=== PATIENT | female | born 1960 | race Caucasian/White ===

== ENCOUNTER 2021-03-16 18:27 | Emergency (ER) | payer OTHER, SELFPAY ==
[2021-03-16 18:30] VITALS: BP 142/87; PULSE 107; RESP 17; TEMP 35.4; O2SAT 92; BMI 31.1
--- NOTE | 2021-03-16 19:25 | CT_ITS ---
STUDY: CT SOFT TISSUE NECK WITH CONTRAST REASON FOR EXAM: Female, 61 years old. Coughing up blood. Question mass. RADIATION DOSAGE (If Supplied By Facility): CTDIvol = ( 16.35 ) mGy, DLP = ( 408.38 ) mGycm TECHNIQUE: The patient was scanned in a multi-detector CT scanner. High resolution transaxial imaging was performed following intravenous administration of IV 100mL Isovue-370. Sagittal and coronal images were reconstructed. Individualized dose optimization techniques were used for this CT. COMPARISON: None. FINDINGS: Normal bilateral parotid glands. 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 Normal bilateral parapharyngeal spaces. Normal bilateral carotid spaces. Normal bilateral sublingual and submandibular glands and spaces. Normal visualized nasopharynx. Normal retropharyngeal space. Normal perivertebral space. Question mild enlargement of the visualized bilateral faucial tonsils. No abscess or abnormal enhancement. The visualized tongue, tongue base and oropharynx are normal. The visualized cervical lymph nodes (levels I-) are within normal size limits, and maintain normal morphology. There is no demonstrated solid or cystic mass lesion. There is no abnormal contrast enhancement. Normal epiglottis, bilateral vallecula and hypopharynx. The pre-epiglottic and paraglottic adipose spaces are normal. Normal visualized bilateral piriform sinuses, aryepiglottic folds, vocal cords, and arytenoid-cricoid articulations. Normal subglottic trachea. Normal bilateral lobes of the thyroid gland. Normal visualized pulmonary apices. There is evidence of an aberrant right subclavian artery which arises off the posterior arch and passes between the esophagus and thoracic spine. Normal visualized paranasal sinuses. Normal visualized cervical spine. CT/Soft Tissue Neck WITH Contrast IMPRESSION: 1. No evidence of mass within the soft tissues of the cervical spine. 2. Question mild prominence of the tonsils without abscess. 3. Aberrant right subclavian artery Electronically Signed: Leopoldo Lucia DO at 21:15 EDT Tel [phone], Service support ,
--- NOTE | 2021-03-16 19:25 | EKG12_ITS ---
Test Reason : DYSRHYTHMIA Blood Pressure : / mmHG Vent. Rate : 094 BPM Atrial Rate : 094 BPM P-R Int : 154 ms QRS Dur : 090 ms QT Int : 370 ms P-R-T Axes : 065 010 054 degrees QTc Int : 462 ms Normal sinus rhythm Normal ECG Confirmed by TABITHA FLORES, MELE ([id number]), legal editor KELECHI ZARAGOZA ([id number]) on 03/17/2021 12:59:24 PM Referred By: PL Confirmed By:SUSIE LU MD
[2021-03-16 19:37] VITALS: PULSE 97; RESP 18
[2021-03-16] MEDS: Ipratropium/Albuterol Sulfate 3 ML AMPUL.NEB INHALATION (19:37)
[2021-03-16 19:59] LABS: Absolute Lymphocyte Count 4.06 X10^3/uL (0.83-4.51); Absolute Neutrophil Count 6.4 X10^3/uL (2.0-7.7); Basophil# 0.14 X10^3/uL; Basophil% 1.2 % (0-1); Hematocrit 38.6 % (37-47); Hemoglobin 13.3 g/dL (12.0-15.0); Lymphocyte # 4.06 X10^3/ul (0.83-4.51); Lymphocyte % 33.7 % (19-41); Mean Corp Hgb Conc 34.5 g/dL (32-36); Mean Corpuscular Hgb 30.6 pg (27.0-32.0); Mean Corpuscular Volume 88.7 fL (81-99); Mean Platelet Vol. 8.6 fl (6.2-12.0); Monocyte# 0.82 X10^3/uL; Monocyte% 6.8 % (0-10); NRBC Flagged by Analyzer 0 % (0-5); Neutrophil # 6.41 X10^3/uL (2.7-7.7); Neutrophil % 53.1 % (47-70); Platelet Count 334 K/mm3 (150-450); RBC Distribution Width CV 12.9 % (11.6-14.6); RBC Distribution Width SD 41.9 fl (35.1-43.9); Red Blood Count 4.35 M/mm3 (4.2-5.4); White Blood Count 12.1 K/mm3 (4.4-11.0)
--- NOTE | 2021-03-16 20:06 | EDS_ITS ---
HPI History of Present Illness Chief Complaint: Cough Informant: patient Narrative Narrative: Patient presents with about a week of cough with intermittent mild hemoptysis. She states she had a large amount of hemoptysis last week and was seen at [facility]. They did blood work and a CAT scan of her abdomen. She states she is coughing the blood. She had swallowed some and then vomited but primarily she is coughing this. The symptoms have gotten better but she still brings up a small amount of blood when she coughs. She is not actually short of breath except during an episode of coughing. She has no chest pain. She has no weight loss. No fevers or chills. No sputum. No known Covid exposure and she does have immunizations. No recent travel, surgery, immobilization, personal or family history of DVT or PE. No leg swelling. She has no family history of heart disease. She was following up with the [place] who told her to come here for follow-up from her original visit a week ago. Past medical history positive for PTSD Medications reviewed Allergy to statin gabapentin and beta-blockers Surgeries include oophorectomy, appendectomy and cholecystectomy Non-smoker [facility] Medical History Kidney disease Thyroid nodule Home Medications amitriptyline 150 mg PO QHS 03/16/21 [History Last Taken Unknown] cholecalciferol (vitamin D3) 100 mcg PO DAILY 03/16/21 [History Last Taken Unknown] escitalopram oxalate 10 mg PO DAILY 03/16/21 [History Last Taken Unknown] levofloxacin 750 mg PO DAILY #6 tab 03/16/21 [Rx Last Taken Unknown] prazosin 1 mg PO TID 03/16/21 [History Last Taken Unknown] Allergy/AdvReac Type Severity Reaction Status Date / Time Uiwamkm-Mej-Mqo Reductase Allergy Rash Verified 03/16/21 18:28 Inhibitor gabapentin AdvReac MOOD Verified 03/16/21 18:28 CHANGES BETA BLOCKERS Allergy HEADACHES Uncoded 03/16/21 18:28 Social History Smoking Status: Current every day smoker tobacco type: pipe ROS ROS ED Constitutional Constitutional ED: Denies chills, fever(s), sweats or weight loss Eyes Eyes: Denies blurry vision ENT ENT ED: Reports other Details: She denies soreness of her throat. However, she feels as though sometimes the blood might come from her throat rather than from her lungs. She is not sure how she feels this is just feels that way to her. ; Denies rhinorrhea or sore throat Cardiovascular Cardiovascular: Denies chest pain or palpitations Respiratory/Chest Respiratory/Chest: Reports cough and other Details: See history of present illness ; Denies dyspnea Gastrointestinal Gastrointestinal: Denies abdominal pain, nausea or vomiting Genitourinary Genitourinary ED: Denies hematuria Musculoskeletal Musculoskeletal: Denies myalgias Integumentary Denies rash Neurologic Neurologic: Denies headache(s), paresthesias or weakness Endocrine Endocrinology: Denies polydipsia or polyuria Hematologic/Lymphatic Hematologic/Lymphatic: Denies easy bleeding or easy bruising Allergic/Immunologic Allergic/Immunologic ED: Denies urticaria EXAM Physical Exam Const Vital Signs: 03/16/21 18:30 03/16/21 19:37 Temperature 95.8 F L Temperature Source Temporal Pulse Rate 107 H 97 Respiratory Rate 17 18 Respiratory Pattern Normal Blood Pressure 142/87 H Blood Pressure Mean 105 Pulse Ox 92 Oxygen Delivery Method Room Air Positive well nourished and well developed General Appearance ED: well developed and NAD; Negative for pallor HEENT Reports moist mucous membranes HEENT Narrative: No intraoral lesions noted. atraumatic Eyes PERRL General Eye ED: Negative for pale conjunctiva or scleral icterus Neck no meningeal signs Neck Narrative: No JVD and no lymphadenopathy felt. No tenderness. No masses. Resp normal respiratory effort and clear to auscultation bilaterally Resp Narrative: She does have an occasional cough in the room although her lungs are clear. There is small pink spots on the tissue. Cardio regular rate and regular rhythm GI non-tender and non-distended Auscultation: normoactive bowel sounds Palpation: soft Back/Spine normal to inspection Extremity normal to inspection General Extremety ED: Negative for edema or tenderness General Extremity: Negative for edema Neuro oriented x3 Sensorium / Orientation: alert Psych mental status grossly normal Skin General Skin Exam: Negative for jaundice or pallor Lesions: no lesions Rashes: no rashes and No rashes noted MDM MDM MDM Narrative Medical decision making narrative: Patient's blood work shows some mild elevation of her white count. Creatinine is 1.2. Electrolytes are overall normal. CT showed no evidence of mass. There is mild prominence of tonsils but no abscess. There was a right upper lobe pneumonia. There are some mild emphys ematous changes. There was no pulmonary embolism or dissection. I talked with the patient. Her saturations are good. She is eating and drinking. We will get her home on antibiotics. She is comfortable with this plan. We discussed reasons to return including dyspnea, pain, worsening hemoptysis or other concerns. Lab Data Attestation: I reviewed the patient's lab results. Labs: Laboratory Results - last 24 hr 03/16/21 03/16/21 19:50 19:50 WBC 12.1 H RBC 4.35 Hgb 13.3 Hct 38.6 MCV 88.7 MCH 30.6 MCHC 34.5 RDW Std Deviation 41.9 RDW Coeff of Shelly 12.9 Plt Count 334 MPV 8.6 Immature Gran % (Auto) 0.200 Neut % (Auto) 53.1 Lymph % (Auto) 33.7 [place] % (Auto) 6.8 Eos % (Auto) 5.0 Baso % (Auto) 1.2 H Absolute Neuts (auto) 6.4 Absolute Lymphs (auto) 4.06 Nucleated RBC % 0 Sodium 137 Potassium 4.1 Chloride 107 Carbon Dioxide 24.0 Anion Gap 6 BUN 17 Creatinine 1.20 H Estim Creat Clear Calc 47.25 Est GFR (MDRD) Af Amer 59 L Est GFR (MDRD) Non-Af 49 L BUN/Creatinine Ratio 14.2 Glucose 99 Calcium 9.2 Radiography Diagnostic Testing: Radiology Impression Soft Tissue Neck CT 03/16/21 19:25 IMPRESSION: 1. No evidence of mass within the soft tissues of the cervical spine. 2. Question mild prominence of the tonsils without abscess. 3. Aberrant right subclavian artery Electronically Signed: Leopoldo Lucia DO at 21:15 EDT Tel [phone], Service support , Chest CTA 03/16/21 20:25 IMPRESSION: 1. Mild right upper lobe pneumonia 2. Diffuse cystic emphysematous changes 3. No demonstrated pulmonary embolism or arterial dissection. Electronically Signed: Riley Olivia MD at 21:23 EDT , Service support , Discharge Plan Triage Chief Complaint: Cough ED Provider: Anam Red Dx/Rx/DC Orders Clinical Impression: Community acquired pneumonia, Hemoptysis Instructions: ED Pneumonia (Adult) Prescriptions: New levofloxacin 750 mg tablet 750 mg PO DAILY Qty: 6 RF: 0 No Action amitriptyline 150 mg Tablet 150 mg PO QHS RF: 0 prazosin 1 mg Capsule 1 mg PO TID RF: 0 escitalopram oxalate 10 mg Tablet 10 mg PO DAILY RF: 0 cholecalciferol (vitamin D3) 100 mcg (4,000 unit) Capsule 100 mcg PO DAILY RF: 0 [facility] Provider[facility] - 1 Week Disposition Disposition: Home, Self Care
[2021-03-16 20:16] LABS: Anion Gap 6 (5-15); BUN 17 mg/dL (7-18); BUN/Creat Ratio 14.2 RATIO (10-20); Calcium,Total 9.2 mg/dL (8.5-10.1); Chloride 107 mmol/L (98-107); EST Glomerular Filtration Rate 49 mL/min (>60); Est Glom Filt Rate - Afr Amer 59 mL/min (>60); Estimated Creatinine Clearance 47.25 ml/min; Glucose 99 mg/dL (74-106); Potassium 4.1 mmol/L (3.5-5.1); Sodium Level 137 mmol/L (136-145)
--- NOTE | 2021-03-16 20:25 | CT_ITS ---
STUDY: CTA CHEST REASON FOR EXAM: Female, 61 years old. cough with blood -- Concern pulmonary embolus RADIATION DOSAGE (If Supplied By Facility): CTDIvol = ( 10.96 ) mGy, DLP = ( 516.90 ) mGycm TECHNIQUE: The examination was performed with the intravenous administration of IV 100mL Isovue-370. Post-processing of the angiographic images was performed, with multiplanar reformation and 3D reconstruction. Individualized dose optimization techniques were used for this CT. COMPARISON: None. FINDINGS: Mild patchy consolidation is present in the apex and mid aspect of the right upper lobe including the hilum. The remaining bilateral lung muniz are clear of infiltrates. Diffuse cystic emphysematous changes are present. A small calcified granulomas present in the superior segment of the right lower lobe. Normal enhancement of the main pulmonary artery and right and left pulmonary arteries. Normal enhancement of the bilateral peripheral pulmonary arteries. There is no demonstrated pulmonary embolism. There is atherosclerotic calcification of the aortic arch with tortuosity. There is no demonstrated aortic dissection. Normal heart size and pericardium. Normal mediastinum. Several small right hilar calcified lymph nodes are present. Normal visualized trachea and bronchi. The lungs are well expanded. Normal pleura. Normal chest wall structures. There are degenerative changes of thoracic spine. Unremarkable visualized upper abdomen. Retrotracheal right brachiocephalic artery noted. Multiple splenic calcifications noted. Fatty liver. CT/CTA Chest W/WO Contrast IMPRESSION: 1. Mild right upper lobe pneumonia 2. Diffuse cystic emphysematous changes 3. No demonstrated pulmonary embolism or arterial dissection. Electronically Signed: Riley Olivia MD at 21:23 EDT , Service support ,
[2021-03-16] MEDS: levoFLOXacin 750 MG Tablet PO (22:22)
[2021-03-16 22:36] VITALS: BP 141/68; PULSE 95; RESP 16; O2SAT 95
== END 2021-03-16 22:37 | disposition home or self-care (01) ==
PROVIDERS: Emergency Provider Emergency Medicine
DX: J18.9 Pneumonia, unspecified organism (principal); R04.2 Hemoptysis; Z79.899 Other long term (current) drug therapy
CPT/HCPCS: 70491; 71275; 80048; 85025; 87426; 93005; 94640; 99283; J7030; Q9967; A4216

== ENCOUNTER 2021-03-22 14:48 | Emergency (ER) | payer OTHER, SELFPAY ==
[2021-03-22 14:49] VITALS: BP 116/94; PULSE 111; RESP 18; TEMP 36.3; O2SAT 94; BMI 31.1
[2021-03-22 14:51] VITALS: BP 116/94; PULSE 111; RESP 18; TEMP 36.3; O2SAT 94
[2021-03-22 15:42] VITALS: O2SAT 97
[2021-03-22 15:51] VITALS: BP 117/64; PULSE 99; RESP 18; TEMP 36.6; O2SAT 97
--- NOTE | 2021-03-22 16:24 | EKG12_ITS ---
Test Reason : GENERAL ILLNESS Blood Pressure : / mmHG Vent. Rate : 095 BPM Atrial Rate : 095 BPM P-R Int : 160 ms QRS Dur : 092 ms QT Int : 370 ms P-R-T Axes : 057 -08 051 degrees QTc Int : 464 ms Sinus rhythm with Premature atrial complexes Poor R wave progression Confirmed by NYA FLORES, FELECIA ([id number]), editorial intern KELECHI ZARAGOZA ([id number]) on 03/24/2021 9:13:59 AM Referred By: JASON Confirmed By:FELECIA FAY MD
--- NOTE | 2021-03-22 16:38 | EX.ED.DYSGE1 ---
HPI History of Present Illness Chief Complaint: Shortness of Breath Informant: patient Onset/Context/Timing Onset: Weeks Context: Gradual Onset Current Severity: Mild Maximum Severity: Moderate Narrative Narrative: Patient presents with continued shortness of breath and cough. She has been ill for the past 2 weeks. She initially was seen and evaluated at [facility] for hemoptysis. She was seen here on March 16 with [address] week of symptoms. A [address] scan revealed a right upper lobe pneumonia. Lab work was largely unremarkable. Covid test was negative. She was discharged with a week course of Levaquin. Patient states she took her last dose this morning but does not feel that she is improved. She had a temperature 99.2 this morning. She continues to have cough with only occasional blood streaks. [facility] Medical History Kidney disease Thyroid nodule Home Medications amitriptyline 150 mg PO QHS 03/16/21 [History Last Taken Unknown] cholecalciferol (vitamin D3) 100 mcg PO DAILY 03/16/21 [History Last Taken Unknown] escitalopram oxalate 10 mg PO DAILY 03/16/21 [History Last Taken Unknown] levofloxacin 750 mg PO DAILY #6 tab 03/16/21 [Rx Last Taken Unknown] prazosin 1 mg PO TID 03/16/21 [History Last Taken Unknown] albuterol sulfate [Ventolin HFA] 2 puff INHALATION Q4H PRN PRN #1 inhaler 03/22/21 [Rx Last Taken Unknown] doxycycline monohydrate 100 mg PO BID #20 cap 03/22/21 [Rx Last Taken Unknown] prednisone 60 mg PO DAILY #15 tab 03/22/21 [Rx Last Taken Unknown] Allergy/AdvReac Type Severity Reaction Status Date / Time Gxtmvmi-Ozs-Urw Reductase Allergy Rash Verified 03/16/21 18:28 Inhibitor gabapentin AdvReac MOOD Verified 03/16/21 18:28 CHANGES BETA BLOCKERS Allergy HEADACHES Uncoded 03/16/21 18:28 Social History Smoking Status: Current every day smoker tobacco type: pipe ROS ROS ED Constitutional Constitutional ED: Reports fever(s); Denies chills Eyes Eyes: Denies change in vision ENT ENT ED: Denies sore throat Cardiovascular Cardiovascular: Denies chest pain, palpitations or racing heartbeat Respiratory/Chest Respiratory/Chest: Reports cough, dyspnea and sputum Gastrointestinal Gastrointestinal: Denies abdominal pain, diarrhea, nausea or vomiting Genitourinary Genitourinary ED: Denies dysuria Musculoskeletal Musculoskeletal: Reports myalgias; Denies back pain Integumentary Denies rash Neurologic Neurologic: Denies headache(s) or weakness Allergic/Immunologic Allergic/Immunologic ED: Denies urticaria EXAM Physical Exam Const Vital Signs: 03/22/21 14:49 03/22/21 14:51 03/22/21 15:42 Temperature 97.3 F L 97.3 F L Temperature Source Temporal Temporal Pulse Rate 111 H 111 H Respiratory Rate 18 18 Respiratory Effort Normal Non-Labored Respiratory Depth Normal Respiratory Pattern Normal Blood Pressure 116/94 H 116/94 H Blood Pressure Mean 101 101 Pulse Ox 94 94 Oxygen Delivery Method Room Air Room Air Room Air 03/22/21 15:51 Temperature 98 F Temperature Source Temporal Pulse Rate 99 Respiratory Rate 18 Respiratory Effort Respiratory Depth Respiratory Pattern Blood Pressure 117/64 Blood Pressure Mean 81 Pulse Ox 97 Oxygen Delivery Method Room Air Positive well nourished and well developed General Appearance ED: well developed Eyes PERRL and EOMs intact bilaterally Neck supple Chest Wall inspection of chest normal and palpation of chest normal Resp normal respiratory effort and clear to auscultation bilaterally Cardio regular rate and regular rhythm GI normal to inspection, nondistended, normoactive bowel sounds and non-tender Palpation: soft Extremity normal to inspection Neuro oriented x3 Sensorium / Orientation: alert Psych mental status grossly normal Skin no rashes or lesions noted MDM MDM MDM Narrative Medical decision making narrative: Lab work including D-dimer ordered. Covid PCR test obtained. When D-dimer returns elevated CTA of the chest is obtained. Lab Data Attestation: I reviewed the patient's lab results. Labs: Laboratory Results - last 24 hr 03/22/21 03/22/21 03/22/21 16:35 16:45 16:45 WBC 10.9 RBC 4.51 Hgb 13.5 Hct 41.0 MCV 90.9 MCH 29.9 MCHC 32.9 RDW Std Deviation 42.5 RDW Coeff of Shelly 12.8 Plt Count 342 MPV 8.9 Immature Gran % (Auto) 0.300 Neut % (Auto) 57.6 Lymph % (Auto) 30.1 [place] % (Auto) 6.5 Eos % (Auto) 4.8 Baso % (Auto) 0.7 Absolute Neuts (auto) 6.3 Absolute Lymphs (auto) 3.27 Nucleated RBC % 0 D-Dimer Quant (PE/DVT) 0.68 H* Sodium Potassium Chloride Carbon Dioxide Anion Gap BUN Creatinine Estim Creat Clear Calc Est GFR (MDRD) Af Amer Est GFR (MDRD) Non-Af BUN/Creatinine Ratio Glucose Lactic Acid Calcium COVID-19 ([facility]) Negative 03/22/21 03/22/21 16:45 16:45 WBC RBC Hgb Hct MCV MCH MCHC RDW Std Deviation RDW Coeff of Shelly Plt Count MPV Immature Gran % (Auto) Neut % (Auto) Lymph % (Auto) [place] % (Auto) Eos % (Auto) Baso % (Auto) Absolute Neuts (auto) Absolute Lymphs (auto) Nucleated RBC % D-Dimer Quant (PE/DVT) Sodium 139 Potassium 4.1 Chloride 104 Carbon Dioxide 26.0 Anion Gap 9 BUN 15 Creatinine 1.26 H Estim Creat Clear Calc 45.00 Est GFR (MDRD) Af Amer 56 L Est GFR (MDRD) Non-Af 46 L BUN/Creatinine Ratio 11.9 Glucose 99 Lactic Acid 1.5 Calcium 9.7 COVID-19 ([facility]) Radiography Diagnostic Testing: Radiology Impression Chest CTA 03/22/21 17:39 IMPRESSION: 1. Mild consolidation throughout the medial third of the right upper lobe has slightly decreased in involvement compared to the previous study which is best illustrated on image 180/258 on the prior study and image 1 55-45 the current exam the remaining bilateral lung muniz are clear. Reidentification of diffuse cystic emphysematous changes. Mild linear scarring is present bilaterally. Small calcified granuloma of the right lower lobe reidentified. 2. No demonstrated pulmonary embolism or arterial dissection. Electronically Signed: Riley Olivia MD at 19:29 EDT , Service support , EKG Initial EKG: Attestation: I personally reviewed and interpreted this EKG as follows: Interpretation: Sinus Rhythm (Sinus at 95 with occasional PACs. No acute ST change.) Treatment and Re-Evaluation Comments:: EKG is unremarkable. Lab work actually shows improvement in white count. Lactic acid normal 1.5. CTA of the chest reveals mild consolidation in the right upper lobe, slightly improved when compared to prior. Test results discussed with the patient. She does feel comfortable with discharge to home. We will treat her with doxycycline to cover atypicals. She will also be given prednisone and albuterol inhaler. Return instructions are provided. Patient has remained hemodynamically stable with O2 sats in the mid to high 90s throughout her ED stay. Discharge Plan Triage Chief Complaint: Shortness of Breath ED Provider: Marlene Varma Dx/Rx/DC Orders Clinical Impression: Community acquired pneumonia Instructions: ED Pneumonia (Adult) Prescriptions: New doxycycline monohydrate 100 MG capsule 100 mg PO BID Qty: 20 RF: 0 albuterol sulfate [Ventolin HFA] 1 INHALER inhaler 2 puff inhalation Q4H PRN PRN (Reason: Wheezing) Qty: 1 RF: 0 prednisone 20 mg tablet 60 mg PO DAILY Qty: 15 RF: 0 No Action amitriptyline 150 mg Tablet 150 mg PO QHS RF: 0 prazosin 1 mg Capsule 1 mg PO TID RF: 0 escitalopram oxalate 10 mg Tablet 10 mg PO DAILY RF: 0 cholecalciferol (vitamin D3) 100 mcg (4,000 unit) Capsule 100 mcg PO DAILY RF: 0 levofloxacin 750 mg tablet 750 mg PO DAILY Qty: 6 RF: 0 [facility] Provider[facility] - 1 Week Disposition Disposition: Home, Self Care
[2021-03-22] MEDS: 0.9% Normal Saline 1,000 ML 150 ML IV (16:47)
[2021-03-22 16:57] LABS: Absolute Lymphocyte Count 3.27 X10^3/uL (0.83-4.51); Absolute Neutrophil Count 6.3 X10^3/uL (2.0-7.7); Basophil# 0.08 X10^3/uL; Basophil% 0.7 % (0-1); Eosinophil# 0.52 X10^3/uL; Eosinophils% 4.8 % (0-5); Hemoglobin 13.5 g/dL (12.0-15.0); Lymphocyte # 3.27 X10^3/ul (0.83-4.51); Lymphocyte % 30.1 % (19-41); Mean Corp Hgb Conc 32.9 g/dL (32-36); Mean Corpuscular Hgb 29.9 pg (27.0-32.0); Mean Corpuscular Volume 90.9 fL (81-99); Mean Platelet Vol. 8.9 fl (6.2-12.0); Monocyte# 0.71 X10^3/uL; Monocyte% 6.5 % (0-10); NRBC Flagged by Analyzer 0 % (0-5); Neutrophil # 6.27 X10^3/uL (2.7-7.7); Neutrophil % 57.6 % (47-70); Platelet Count 342 K/mm3 (150-450); RBC Distribution Width CV 12.8 % (11.6-14.6); RBC Distribution Width SD 42.5 fl (35.1-43.9); Red Blood Count 4.51 M/mm3 (4.2-5.4); White Blood Count 10.9 K/mm3 (4.4-11.0)
[2021-03-22 17:09] LABS: Anion Gap 9 (5-15); BUN 15 mg/dL (7-18); BUN/Creat Ratio 11.9 RATIO (10-20); Calcium,Total 9.7 mg/dL (8.5-10.1); Chloride 104 mmol/L (98-107); Creatinine, Serum 1.26 mg/dL (0.55-1.02); EST Glomerular Filtration Rate 46 mL/min (>60); Est Glom Filt Rate - Afr Amer 56 mL/min (>60); Glucose 99 mg/dL (74-106); Potassium 4.1 mmol/L (3.5-5.1); Sodium Level 139 mmol/L (136-145)
[2021-03-22 17:18] LABS: Lactic Acid 1.5 mmol/L (0.4-1.9)
[2021-03-22 17:39] LABS: D-Dimer Quantitative (DVT/PE) 0.68 FEU/ug/m (0.27-0.49)
--- NOTE | 2021-03-22 17:39 | CT_ITS ---
STUDY: CTA CHEST REASON FOR EXAM: Female, 61 years old. sob RADIATION DOSAGE (If Supplied By Facility): CTDIvol = ( 10.82 ) mGy, DLP = ( 405.45 ) mGycm TECHNIQUE: The examination was performed with the intravenous administration of IV 100mL Isovue-370. Post-processing of the angiographic images was performed, with multiplanar reformation and 3D reconstruction. Individualized dose optimization techniques were used for this CT. COMPARISON: CT of the chest dated March 16, 2021 FINDINGS: Mild consolidation throughout the medial third of the right upper lobe has slightly decreased in involvement compared to the previous study which is best illustrated on image 180/258 on the prior study and image 1 the current exam the remaining bilateral lung muniz are clear. Reidentification of diffuse cystic emphysematous changes. Mild linear scarring is present bilaterally. Small calcified granuloma of the right lower lobe reidentified. Normal enhancement of the main pulmonary artery and right and left pulmonary arteries. Normal enhancement of the bilateral peripheral pulmonary arteries. There is no demonstrated pulmonary embolism. Normal thoracic aorta and visualized great vessels. There is no demonstrated aortic dissection. Normal heart and pericardium. Normal mediastinum. Small calcified right hilar nodes reidentified. Normal visualized trachea and bronchi. The lungs are well expanded. Normal pleura. Normal chest wall structures. There are degenerative changes of thoracic spine. Stable visualized upper abdominal structures. No acute or significant process is seen. CT/CTA Chest W/WO Contrast IMPRESSION: 1. Mild consolidation throughout the medial third of the right upper lobe has slightly decreased in involvement compared to the previous study which is best illustrated on image 180/258 on the prior study and image 1 the current exam the remaining bilateral lung muniz are clear. Reidentification of diffuse cystic emphysematous changes. Mild linear scarring is present bilaterally. Small calcified granuloma of the right lower lobe reidentified. 2. No demonstrated pulmonary embolism or arterial dissection. Electronically Signed: Riley Olivia MD at 19:29 EDT , Service support ,
[2021-03-22 18:15] LABS: Probe Check PASS; Specimen Processing Control PASS
[2021-03-22] MEDS: Doxycycline 100 MG CAPSULE PO (20:07)
[2021-03-22] MEDS: predniSONE 20 MG Tablet 60 MG PO (20:07)
[2021-03-22 20:14] VITALS: BP 127/64; PULSE 85; RESP 16; O2SAT 99
== END 2021-03-22 20:15 | disposition home or self-care (01) ==
PROVIDERS: Emergency Provider Emergency Medicine
DX: J18.9 Pneumonia, unspecified organism (principal); I49.1 Atrial premature depolarization; F17.290 Nicotine dependence, other tobacco product, uncomplicated
CPT/HCPCS: 71275; 80048; 83605; 85025; 85379; 87040; 87635; 93005; 96360; 96361; 99285; J7030; Q9967; U0005; A4216; U0003